=== PATIENT | male | born 1990 | race Two or more races ===

== ENCOUNTER 2021-03-13 07:54 | Outpatient (REF) | payer OTHER, SELFPAY ==
[2021-03-13 09:01] LABS: Hematocrit 43.8 % (42-52); Hemoglobin 14.4 g/dl (14.0-18.0); Mean Corpuscular HGB Conc 32.9 g/dl (31.0-36.0); Mean Corpuscular Hemoglobin 28.6 pg (27.0-33.0); Mean Corpuscular Volume 86.9 fL (80-98); Mean Platelet Volume 11.5 fL (9.4-12.4); Platelet Count 255 X10*3/uL (160-400); Red Blood Count 5.04 X10*6/uL (4.60-5.80); Red Cell Distribution Width 12.7 % (11.0-16.0); White Blood Count 6.5 X10*3/uL (4.8-10.8)
[2021-03-13 09:44] LABS: TSH reflex Free T4 1.22 uIU/mL (0.32-4.0)
[2021-03-13 10:17] LABS: Alanine Aminotransferase 34 U/L (0-40); Albumin Level 4.6 g/dL (3.5-5.0); Alkaline Phosphatase 54 U/L (39-117); Anion Gap 14 (12-20); Aspartate Amino Transferase 30 U/L (5-37); Bilirubin Total 1.4 mg/dL (0.0-1.0); Blood Urea Nitrogen 13 mg/dL (9-16); Calcium 9.4 mg/dL (8.4-10.2); Carbon Dioxide 25 mmol/L (22-29); Chloride 105 mmol/L (96-108); Cholesterol 165 mg/dL; Estimated Glomerular Filt Rate > 60; Glucose Fasting 94 mg/dL (60-99); HDL Cholesterol 41 mg/dL; LDL Cholesterol Calculated 104 mg/dl; Potassium 4.5 mmol/L (3.3-5.1); Sodium 139 mmol/L (135-145); Total Protein 7.2 g/dL (6.5-8.0); Triglycerides 104 mg/dL
== END 2021-03-13 07:55 | disposition home or self-care (01) ==
LOC: HO.LAB 07:54
PROVIDERS: PCP Physician Assistant; Visit Provider Physician Assistant
DX: Z13.220 Encounter for screening for lipoid disorders (principal); Z13.29 Encounter for screening for other suspected endocrine disorder; I10 Essential (primary) hypertension
CPT/HCPCS: 36415; 80053; 80061; 84443; 85027

== ENCOUNTER → 2021-04-16 13:52 | Outpatient (REF) | payer OTHER, SELFPAY ==
--- NOTE | 2021-04-16 13:56 | CA_ITS ---
Transthoracic Echocardiogram Patient (Last, First, Middle): Michael Vera Angel Gender: Male Date of : 1990 Age: 31 Procedure Date: 04/16/2021 Procedure Type: Transthoracic Echocardiogram Location: OP Height: 170.18 cm Weight: 104.33 kg BSA: 2.15 m2 Heart Rate: bpm BP: 105 / 64 mmHg Exec. Creative Director: BRYAN Referring MD: Cornell Moy PA-C Symptoms: Z86.79 - Personal history of other diseases of the circul... Study Quality: Fair ECG Rhythm: Sinus Conclusions: - The left ventricular systolic function is normal. The visually estimated ejection fraction is between 55-60%. - No obvious valvular pathology seen on this study. Findings Left Ventricle Normal left ventricular cavity size. There is mildly increased left ventricular wall thickness. The left ventricular systolic function is normal. The visually estimated ejection fraction is between 55-60%. There is no evidence of regional wall motion abnormalities. Diastolic function is normal for age. Right Ventricle Normal right ventricular cavity size and systolic function. Atria Both atria are normal in size. Aortic Valve There is a normal trileaflet aortic valve. There is no aortic valve stenosis. There is no aortic valve regurgitation. Mitral Valve The mitral valve appears normal. There is trace mitral valve regurgitation. There is no mitral valve stenosis. Pulmonic Valve The pulmonic valve was not well visualized. Tricuspid Valve Normal tricuspid valve structure. There is trace tricuspid valve regurgitation. The pulmonary artery systolic pressure is normal. Great Vessels The aortic annulus, sinuses of valsalva, and asc aorta are normal in size. Venous The inferior vena cava is normal in size and collapses greater than 50% with inspiration. Pericardium/Pleural There is no evidence of pericardial effusion. Prior Study Comparison No prior study available for comparison. Recommendations, Care & Conclusions No obvious valvular pathology seen on this study. Measurements M-Mode Liner Measurements Normals - Women/Men IVSd: 1.52 0.6-0.9/0.6-1.0 cm 2D Linear Measurements IVSd: 1.39 0.6-0.9/0.6-1.0 cm LVIDd: 4.15 3.9-5.3/4.2-5.9 cm LVIDd Index: 1.93 2.4-3.2/2.2-3.1 cm/m2 LVIDs: 2.77 2.0-3.6 cm LVPWd: 1.15 0.7-1.1 cm LA Diam: 3.80 2.7-3.8/3.0-4.0 cm LAIDs Index: 1.77 1.5-2.3 cm/m2 LV Mass: 237.06 67-162/88-224 g LV Mass Index: 110.26 43-95/49-115 g/m2 LVOT Diam: 2.20 3.0+(-)1.3 cm 2D Systolic Function EF 4C: 69.80 >55% EF 2C: 48.10 >55% EF BiP: 60.20 >55% Mitral Valve MV Pk E: 0.56 MV PK A: 0.35 MV Decel Time: 169.00 E/A: 1.60 E'Lateral: 14.90 E'Medial: 7.83 E/E' Med: 7.10 E/E' Lat: 3.70 PHT: 50.00 MVA PHT: 4.40 Decel [place]: 3.30 Aortic Valve AoV Pk Homer: 1.30 AoV Pk Grad: 7.00 LVOT LVOT Pk Homer: 0.86 LVOT Mn [place]: 0.58 LVOT VTI: 0.15 LVOT Pk Grad: 3.00 LVOT Mn Grad: 2.00 LVOT Diam: 2.20 LVOT Area: 3.80 Diastolic Function MV Pk E: 0.56 MV Pk A: 0.35 E/A: 1.60 E'Medial: 7.83 E/E' Med: 7.10 E' Laterial: 14.90 E/E' Lat: 3.70 Right Ventricle TAPSE (mm): 2.03 Tricuspid Valve TR Pk Homer: 1.97 TR Pk Grad: 16.00 RA Press: 3.00 RVSP: 19.00 Great Vessels Aorta Ao Asc: 2.80 2.1-3.4 cm Updated in Other Vendor System with Status of Final Aydin Wynn MD electronically signed on 04/18/2021 10:54:16 AM with status of Final
== END ==
LOC: HO.CARD 13:52
PROVIDERS: Visit Provider Physician Assistant
DX: Z86.79 Personal history of other diseases of the circulatory system (principal)
CPT/HCPCS: 93306

== ENCOUNTER 2022-07-30 18:13 | Emergency (ER) | payer OTHER, SELFPAY ==
--- NOTE | ~2022-07-30 | CT_ITS ---
EXAMINATION: CT ABDOMEN AND PELVIS WITHOUT CONTRAST CLINICAL INFORMATION: Abdominal pain. COMPARISON: CT dated 11/06/2015 and ultrasound dated 05/07/2019 TECHNIQUE: Multidetector volumetric imaging was performed from the superior aspect of the liver through the pubic symphysis. Sagittal and coronal reformatted images were obtained on the technologist's workstation. This CT examination was performed using dose optimization techniques as appropriate, variously including the following: *Automated exposure control *Adjustment of mA and/or kV according to patient size (this includes techniques or standardized protocols for targeted exams where dose is matched to indication/reason for exam; i.e. extremities or head) *Use of iterative reconstruction technique DLP: 727 mGy-cm FINDINGS: LUNG BASES: The visualized lung bases are unremarkable. LIVER, GALLBLADDER, AND BILIARY TREE: The liver is normal in size, shape, and attenuation. No focal hepatic lesion or biliary ductal dilatation is present. The gallbladder is unremarkable with no evidence of radiopaque gallstones, gallbladder wall thickening, or obvious pericholecystic inflammatory changes. PANCREAS: Unremarkable. SPLEEN: Unremarkable. ADRENAL GLANDS: Unremarkable. KIDNEYS AND URETERS: The kidneys are normal in size, shape, and attenuation. No hydronephrosis, hydroureter, or calculi seen. No perinephric stranding. BLADDER: Unremarkable. GASTROINTESTINAL TRACT: Stomach, small bowel, and colon are normal in caliber. No bowel wall thickening or surrounding inflammatory changes. Appendix appears surgically absent. No intraperitoneal free fluid or free air. ABDOMINAL WALL: No significant hernia is appreciated. LYMPH NODES: Normal. VASCULAR: Unremarkable. PELVIC VISCERA: The prostate and seminal vesicles are unremarkable. OSSEOUS STRUCTURES: No acute osseous abnormalities. Bone mineralization is normal. Thoracolumbar spine appears relatively well-preserved. CT/CT abdomen pelvis wo IV con IMPRESSION: No acute intra-abdominal or intrapelvic abnormalities. Prior appendectomy. Fleischner guidelines were followed.
--- NOTE | ~2022-07-30 | XR_ITS ---
EXAMINATION: XR CHEST, 2 VIEWS CLINICAL INFORMATION: Weakness, syncope COMPARISON: 05/07/2019 TECHNIQUE: PA and lateral views of the chest were obtained. FINDINGS: Lungs are clear. No consolidation, pneumothorax, or pleural effusion. Cardiac and mediastinal contours are normal. Pulmonary vasculature is unremarkable. Trachea is midline. Osseous structures are unremarkable. XR/XR chest 2V IMPRESSION: No acute cardiopulmonary findings.
[2022-07-30 18:26] VITALS: BP 95/52; PULSE 92; RESP 18; TEMP 36.9; O2SAT 98; BMI 33.5
--- NOTE | 2022-07-30 18:29 | ED_ITS ---
HPI - General Adult General Chief complaint: Abdominal Pain <ZINA Pérez - Last Filed: 07/30/22 18:29> Stated complaint: Abdominal pain/Syncope <ZINA Pérez - Last Filed: 07/30/22 18:29> Time Seen by Provider: 07/30/22 18:43 <ZINA Pérez - Last Filed: 07/30/22 18:29> Source: patient <Maegan Mann NP - Last Filed: 07/31/22 01:18> Mode of arrival: ambulatory <Maegan Mann NP - Last Filed: 07/31/22 01:18> Limitations: no limitations <Maegan Mann NP - Last Filed: 07/31/22 01:18> History of Present Illness HPI narrative: 32-year-old male presents with 1 day of abdominal pain and 2 episodes of syncope. <Maegan Mann NP - Last Filed: 07/31/22 01:18> Onset (ago): day(s) (1) <Maegan Mann NP - Last Filed: 07/31/22 01:18> Location: abdomen <Maegan Mann NP - Last Filed: 07/31/22 01:18> Radiation: non-radiation <Maegan Mann NP - Last Filed: 07/31/22 01:18> Severity: mild <Maegan Mann NP - Last Filed: 07/31/22 01:18> Quality: aching <Maegan Mann NP - Last Filed: 07/31/22 01:18> Pain Consistency: constant <Maegan Mann NP - Last Filed: 07/31/22 01:18> Relieving factors: none <Maegan Mann NP - Last Filed: 07/31/22 01:18> Associated symptoms: syncope <Maegan Mann NP - Last Filed: 07/31/22 01:18> Treatments prior to arrival: none <Maegan Mann NP - Last Filed: 07/31/22 01:18> Related Data Home medications: Home Medications Medication Instructions Recorded Confirmed No Known Home Meds 04/30/20 03/22/22 <ZINA Pérez - Last Filed: 07/30/22 18:29> Allergies/adverse reactions: Allergies Allergy/AdvReac Type Severity Reaction Status Date / Time No Known Allergies Allergy Verified 07/30/22 18:29 [No Known Allergies*] <ZINA Pérez - Last Filed: 07/30/22 18:29> Review of Systems Review of Systems: Constitutional: No Fever, No Chills Cardiovascular: No Chest Pain, No SOB Respiratory: No Cough, No Dyspnea Gastrointestinal: No Nausea, No Vomiting, No Diarrhea, positive abdominal Pain Genitourinary: No Dysuria, No Hematuria Musculoskeletal: No joint pain, No Myalgias, No Joint Swelling Skin: No Skin lacerations, No rash Neuro: No Weakness, No Numbness, No Paresthesias, positive Loss of Consciousness, No Dizziness, No Headache <Maegan Mann NP - Last Filed: 07/31/22 01:18> Yes all other systems are reviewed and are negative <Maegan Mann NP - Last Filed: 07/31/22 01:18> PMFSH Past Medical History Attestation statement: The following information was validated with the patient. <Maegan Mann NP - Last Filed: 07/31/22 01:18> Source: old records reviewed <Maegan Mann NP - Last Filed: 07/31/22 01:18> Surgical History: Surgical History History of appendectomy <ZINA Pérez - Last Filed: 07/30/22 18:29> Family History Family History: Family History Father Hypertension Mother Diabetes Son Alive and well Daughter Alive and well <ZINA Pérez - Last Filed: 07/30/22 18:29> Social History Social History: Social History Housing: House Alcohol intake: never Patient Tobacco Use Status: Never used Tobacco Smoked in Last 30 Days: No e-Cigarette/Vaping Use: Never Used Second Hand Smoke Exposure: No Use of substances other than those prescribed or required for medical reasons: No Substance Use Type: Marijuana Advance Directives: No Advance Directives Information Provided: No service: No Current occupational status: employed Current occupation: Shipping and recieving [place] Cognitive needs: No Hearing needs: No Vision needs: Yes (GLASSES) <ZINA Pérez - Last Filed: 07/30/22 18:29> Physical Exam ED Vital Signs: Vital Signs - 24 hr 07/30/22 18:26 07/30/22 19:37 07/30/22 19:39 Temperature 98.4 F 98.1 F Pulse Rate 92 73 73 Respiratory Rate 18 10 L 10 L Blood Pressure 95/52 L 95/57 L 117/68 Pulse Oximetry 98 97 98 Oxygen Delivery Method Room Air Room Air Room Air 07/30/22 20:00 Temperature Pulse Rate 80 Respiratory Rate 19 Blood Pressure 119/73 Pulse Oximetry 98 Oxygen Delivery Method Room Air BMI result Body Mass Index 33.5 <ZINA Pérez - Last Filed: 07/30/22 18:29> Vital Signs - 24 hr 07/30/22 18:26 07/30/22 19:37 07/30/22 19:39 Temperature 98.4 F 98.1 F Pulse Rate 92 73 73 Respiratory Rate 18 10 L 10 L Blood Pressure 95/52 L 95/57 L 117/68 Pulse Oximetry 98 97 98 Oxygen Delivery Method Room Air Room Air Room Air 07/30/22 20:00 Temperature Pulse Rate 80 Respiratory Rate 19 Blood Pressure 119/73 Pulse Oximetry 98 Oxygen Delivery Method Room Air BMI result Body Mass Index 33.5 <Maegan Mann NP - Last Filed: 07/31/22 01:18> Appearance: Alert. Oriented X3. No acute distress. Eyes: Pupils equal, round and reactive to light. ENT: Pharynx normal. Neck: Normal inspection. Neck supple. CVS: Normal heart rate and rhythm. Pulses normal. Respiratory: No respiratory distress. Breath sounds normal. Abdomen: Soft and nontender. Skin: Skin warm and dry. Normal skin color. Normal skin turgor. Extremities: No lower extremity edema. Gait not assessed for safety. Neuro: No motor deficit. No sensory deficit. Cranial nerves 2-12 intact. <Maegan Mann NP - Last Filed: 07/31/22 01:18> Course Course Course Narrative: RME performed by Miya Swan PA-C. Patient is a 32 year old male presenting to the emergency department with multiple syncopal episodes and abdominal pain. Labs ordered. <ZINA Pérez - Last Filed: 07/30/22 18:29> RME performed by Miya Swan PA-C. Patient is a 32 year old male presenting to the emergency department with multiple syncopal episodes and abdominal pain. Labs ordered. 32-year-old male presents with abdominal pain and nausea. States his children have been sick with a gastroenteritis type virus. Patient stated that he has had some abdominal pain and cramping, and he treated it with sitting in a hot tub for 2 hours. He stated that the hot tub made the pain better, and when he got out of the hot tub he had a syncopal episode. He does not report drinking very much today, and still feels a little bit weak. I did provide education to this patient that 2 hours in the hot tub is excessive and that he most likely has dehydration, heat exhaustion, and would require IV fluid resuscitation. Will order CT scan abdomen pelvis. And EKG. Patient is hypotensive at 95/52, most likely dehydration, low likelihood of sepsis. 19:30 patient has syncopal episode during IV start. Labs and fluid still pending. EKG normal sinus. 22:20 labs are negative for acute findings requiring emergent intervention. C OVID influenza RSV are negative. Low likelihood of ACS. Chest x-rays negative. CT abdomen pelvis negative. Pulse ox 97% ambulatory, ambulatory without difficulty or dizziness. Plan of care is to Discharge home. Patient does understand that he should not be in a hot tub for greater than 15 minutes at a time. Patient was able to tolerate p.o. food and fluids. Patient verbalized understanding of and agrees to plan of care discharge home. Verbalized understanding of signs symptoms indicating need for emergent event. <Maegan Mann NP - Last Filed: 07/31/22 01:18> Medications Administered Discontinued Medications Generic Name Dose Route Start Last Admin Trade Name Freq PRN Reason Stop Dose Admin Sodium Chloride 1,000 mls @ 999 mls/hr 07/30/22 18:45 07/30/22 21:15 Ns IVCONT 07/30/22 19:45 Infused .Q1H1M JANN Infusion Sodium Chloride 1,000 mls @ 999 mls/hr 07/30/22 19:00 07/30/22 21:15 Ns IVCONT 07/30/22 20:00 Infused .Q1H1M JANN Infusion Ondansetron HCl 4 mg 07/30/22 19:46 07/30/22 20:18 Ondansetron Hcl 4 Mg/2 Ml Vial IVPUSH 07/30/22 19:47 4 mg ONCE ONE Administration <ZINA Pérez - Last Filed: 07/30/22 18:29> Medications Administered Discontinued Medications Generic Name Dose Route Start Last Admin Trade Name Marckq PRN Reason Stop Dose Admin Sodium Chloride 1,000 mls @ 999 mls/hr 07/30/22 18:45 07/30/22 21:15 Ns IVCONT 07/30/22 19:45 Infused .Q1H1M JANN Infusion Sodium Chloride 1,000 mls @ 999 mls/hr 07/30/22 19:00 07/30/22 21:15 Ns IVCONT 07/30/22 20:00 Infused .Q1H1M JANN Infusion Ondansetron HCl 4 mg 07/30/22 19:46 07/30/22 20:18 Ondansetron Hcl 4 Mg/2 Ml Vial IVPUSH 07/30/22 19:47 4 mg ONCE ONE Administration <Maegan Mann NP - Last Filed: 07/31/22 01:18> Medical Decision Making Differential Diagnosis Differential Diagnoses: The differential diagnosis associated with the presentation includes <Maegan Mann NP - Last Filed: 07/31/22 01:18> heat exhaustion, dehydration, gastroenteritis, ACS <Maegan Mann NP - Last Filed: 07/31/22 01:18> Lab Data MDM Lab Attestation statement: I reviewed the patient's lab results. <Maegan Mann NP - Last Filed: 07/31/22 01:18> Result Diagrams: 07/30/22 19:18 07/30/22 19:18 <ZINA Pérez - Last Filed: 07/30/22 18:29> Labs: Lab Results 07/30/22 07/30/22 07/30/22 Range/Units 19:17 19:18 19:18 WBC 9.8 (4.8-10.8) X10*3/uL RBC 5.13 (4.60-5.80) X10*6/uL Hgb 14.8 (14.0-18.0) g/dl Hct 43.5 (42.0-52.0) % MCV 84.8 (80.0-98.0) fL MCH 28.8 (27.0-33.0) pg MCHC 34.0 (31.0-36.0) g/dl RDW 12.2 (11.0-16.0) % Plt Count 236 (160-400) X10*3/uL MPV 10.5 (9.4-12.4) fL Immature Gran % (Auto) 0.2 (0.0-0.4) % Neut % (Auto) 88.5 H (45-73) % Lymph % (Auto) 5.5 L (20-40) % [place] % (Auto) 5.3 (2-11) % Eos % (Auto) 0.4 (0-4) % Baso % (Auto) 0.1 (0-2) % Lymph # (Auto) 0.5 L (1.2-4.9) X10*3/uL [place] # (Auto) 0.5 (0.1-1.2) X10*3/uL Eos # (Auto) 0.0 (0.0-0.4) X10*3/uL Baso # (Auto) 0.0 (0.0-0.2) X10*3/uL Abs Immat Gran (auto) 0.02 (0.00-0.03) X10*3/uL Absolute Neuts (auto) 8.7 H (2.0-8.3) x10*3/uL Absolute Nucleated RBC 0.000 (0.0-0.012) X10*3/uL Nucleated RBC % (auto) 0.0 (0.0-0.2) /100WBC Sodium 138 (135-145) mmol/L Potassium 4.4 (3.3-5.1) mmol/L Chloride 103 (96-108) mmol/L Carbon Dioxide 24 (22-29) mmol/L Anion Gap 15 (12-20) BUN 17 H (9-16) mg/dL Creatinine 1.09 (0.5-1.4) mg/dL Estim Creat Clear Calc 105.5 Estimated GFR > 60 Random Glucose 114 (60-115) mg/dL Calcium 9.5 (8.4-10.2) mg/dL Magnesium 2.0 (1.6-2.6) mg/dL Total Bilirubin 1.6 H (0.0-1.0) mg/dL AST 27 (5-37) U/L ALT 24 (0-40) U/L Alkaline Phosphatase 53 (39-117) U/L Troponin I High Sens (<3.5-35.0) ng/L Total Protein 7.3 (6.5-8.0) g/dL Albumin 4.7 (3.5-5.0) g/dL Influenza Type A (PCR) NEGATIVE (Negative) Influenza Type B (PCR) NEGATIVE (Negative) RSV RNA Qual (PCR) NEGATIVE (Negative) SARS-CoV-2 RNA (RT-PCR) NEGATIVE (Negative) 07/30/22 Range/Units 19:18 WBC (4.8-10.8) X10*3/uL RBC (4.60-5.80) X10*6/uL Hgb (14.0-18.0) g/dl Hct (42.0-52.0) % MCV (80.0-98.0) fL MCH (27.0-33.0) pg MCHC (31.0-36.0) g/dl RDW (11.0-16.0) % Plt Count (160-400) X10*3/uL MPV (9.4-12.4) fL Immature Gran % (Auto) (0.0-0.4) % Neut % (Auto) (45-73) % Lymph % (Auto) (20-40) % [place] % (Auto) (2-11) % Eos % (Auto) (0-4) % Baso % (Auto) (0-2) % Lymph # (Auto) (1.2-4.9) X10*3/uL [place] # (Auto) (0.1-1.2) X10*3/uL Eos # (Auto) (0.0-0.4) X10*3/uL Baso # (Auto) (0.0-0.2) X10*3/uL Abs Immat Gran (auto) (0.00-0.03) X10*3/uL Absolute Neuts (auto) (2.0-8.3) x10*3/uL Absolute Nucleated RBC (0.0-0.012) X10*3/uL Nucleated RBC % (auto) (0.0-0.2) /100WBC Sodium (135-145) mmol/L Potassium (3.3-5.1) mmol/L Chloride (96-108) mmol/L Carbon Dioxide (22-29) mmol/L Anion Gap (12-20) BUN (9-16) mg/dL Creatinine (0.5-1.4) mg/dL Estim Creat Clear Calc Estimated GFR Random Glucose (60-115) mg/dL Calcium (8.4-10.2) mg/dL Magnesium (1.6-2.6) mg/dL Total Bilirubin (0.0-1.0) mg/dL AST (5-37) U/L ALT (0-40) U/L Alkaline Phosphatase (39-117) U/L Troponin I High Sens < 3.5 (<3.5-35.0) ng/L Total Protein (6.5-8.0) g/dL Albumin (3.5-5.0) g/dL Influenza Type A (PCR) (Negative) Influenza Type B (PCR) (Negative) RSV RNA Qual (PCR) (Negative) SARS-CoV-2 RNA (RT-PCR) (Negative) <ZINA Pérez - Last Filed: 07/30/22 18:29> Lab Results 07/30/22 07/30/22 07/30/22 Range/Units 19:17 19:18 19:18 WBC 9.8 (4.8-10.8) X10*3/uL RBC 5.13 (4.60-5.80) X10*6/uL Hgb 14.8 (14.0-18.0) g/dl Hct 43.5 (42.0-52.0) % MCV 84.8 (80.0-98.0) fL MCH 28.8 (27.0-33.0) pg MCHC 34.0 (31.0-36.0) g/dl RDW 12.2 (11.0-16.0) % Plt Count 236 (160-400) X10*3/uL MPV 10.5 (9.4-12.4) fL Immature Gran % (Auto) 0.2 (0.0-0.4) % Neut % (Auto) 88.5 H (45-73) % Lymph % (Auto) 5.5 L (20-40) % [place] % (Auto) 5.3 (2-11) % Eos % (Auto) 0.4 (0-4) % Baso % (Auto) 0.1 (0-2) % Lymph # (Auto) 0.5 L (1.2-4.9) X10*3/uL [place] # (Auto) 0.5 (0.1-1.2) X10*3/uL Eos # (Auto) 0.0 (0.0-0.4) X10*3/uL Baso # (Auto) 0.0 (0.0-0.2) X10*3/uL Abs Immat Gran (auto) 0.02 (0.00-0.03) X10*3/uL Absolute Neuts (auto) 8.7 H (2.0-8.3) x10*3/uL Absolute Nucleated RBC 0.000 (0.0-0.012) X10*3/uL Nucleated RBC % (auto) 0.0 (0.0-0.2) /100WBC Sodium 138 (135-145) mmol/L Potassium 4.4 (3.3-5.1) mmol/L Chloride 103 (96-108) mmol/L Carbon Dioxide 24 (22-29) mmol/L Anion Gap 15 (12-20) BUN 17 H (9-16) mg/dL Creatinine 1.09 (0.5-1.4) mg/dL Estim Creat Clear Calc 105.5 Estimated GFR > 60 Random Glucose 114 (60-115) mg/dL Calcium 9.5 (8.4-10.2) mg/dL Magnesium 2.0 (1.6-2.6) mg/dL Total Bilirubin 1.6 H (0.0-1.0) mg/dL AST 27 (5-37) U/L ALT 24 (0-40) U/L Alkaline Phosphatase 53 (39-117) U/L Troponin I High Sens (<3.5-35.0) ng/L Total Protein 7.3 (6.5-8.0) g/dL Albumin 4.7 (3.5-5.0) g/dL Influenza Type A (PCR) NEGATIVE (Negative) Influenza Type B (PCR) NEGATIVE (Negative) RSV RNA Qual (PCR) NEGATIVE (Negative) SARS-CoV-2 RNA (RT-PCR) NEGATIVE (Negative) 07/30/22 Range/Units 19:18 WBC (4.8-10.8) X10*3/uL RBC (4.60-5.80) X10*6/uL Hgb (14.0-18.0) g/dl Hct (42.0-52.0) % MCV (80.0-98.0) fL MCH (27.0-33.0) pg MCHC (31.0-36.0) g/dl RDW (11.0-16.0) % Plt Count (160-400) X10*3/uL MPV (9.4-12.4) fL Immature Gran % (Auto) (0.0-0.4) % Neut % (Auto) (45-73) % Lymph % (Auto) (20-40) % [place] % (Auto) (2-11) % Eos % (Auto) (0-4) % Baso % (Auto) (0-2) % Lymph # (Auto) (1.2-4.9) X10*3/uL [place] # (Auto) (0.1-1.2) X10*3/uL Eos # (Auto) (0.0-0.4) X10*3/uL Baso # (Auto) (0.0-0.2) X10*3/uL Abs Immat Gran (auto) (0.00-0.03) X10*3/uL Absolute Neuts (auto) (2.0-8.3) x10*3/uL Absolute Nucleated RBC (0.0-0.012) X10*3/uL Nucleated RBC % (auto) (0.0-0.2) /100WBC Sodium (135-145) mmol/L Potassium (3.3-5.1) mmol/L Chloride (96-108) mmol/L Carbon Dioxide (22-29) mmol/L Anion Gap (12-20) BUN (9-16) mg/dL Creatinine (0.5-1.4) mg/dL Estim Creat Clear Calc Estimated GFR Random Glucose (60-115) mg/dL Calcium (8.4-10.2) mg/dL Magnesium (1.6-2.6) mg/dL Total Bilirubin (0.0-1.0) mg/dL AST (5-37) U/L ALT (0-40) U/L Alkaline Phosphatase (39-117) U/L Troponin I High Sens < 3.5 (<3.5-35.0) ng/L Total Protein (6.5-8.0) g/dL Albumin (3.5-5.0) g/dL Influenza Type A (PCR) (Negative) Influenza Type B (PCR) (Negative) RSV RNA Qual (PCR) (Negative) SARS-CoV-2 RNA (RT-PCR) (Negative) <Maegan Mann NP - Last Filed: 07/31/22 01:18> Independent Interpretation I performed an independent interpretation of an: EKG, Plain X-Ray and CT Scan <Maegan Mann NP - Last Filed: 07/31/22 01:18> Interpretation: Normal sinus rhythm Normal ECG When compared with ECG of 07-MAY-2019 22:24, No significant change was found Vent. rate 79 BPM IN interval 164 ms QRS duration 88 ms QT/QTc 332/380 ms P-R-T axes 19 64 20 30-JUL-2022 19:10:13 <Maegan Mann NP - Last Filed: 07/31/22 01:18> Radiology Impression Discussion of test interpretation with radiology: I have reviewed the radiologist's reading. <Maegan Mann NP - Last Filed: 07/31/22 01:18> Radiologist Impression: EXAMINATION: XR CHEST, 2 VIEWS CLINICAL INFORMATION: Weakness, syncope COMPARISON: 05/07/2019 TECHNIQUE: PA and lateral views of the chest were obtained. FINDINGS: Lungs are clear. No consolidation, pneumothorax, or pleural effusion. Cardiac and mediastinal contours are normal. Pulmonary vasculature is unremarkable. Trachea is midline. Osseous structures are unremarkable. XR/XR chest 2V IMPRESSION: No acute cardiopulmonary findings FINDINGS: LUNG BASES: The visualized lung bases are unremarkable.? LIVER, GALLBLADDER, AND BILIARY TREE: The liver is normal in size, shape, and attenuation. No focal hepatic lesion or biliary ductal dilatation is present. The gallbladder is unremarkable with no evidence of radiopaque gallstones, gallbladder wall thickening, or obvious pericholecystic inflammatory changes.? PANCREAS: Unremarkable.? SPLEEN: Unremarkable.? ADRENAL GLANDS: Unremarkable.? KIDNEYS AND URETERS: The kidneys are normal in size, shape, and attenuation. No hydronephrosis, hydroureter, or calculi seen. No perinephric stranding. ? BLADDER: Unremarkable.? GASTROINTESTINAL TRACT: Stomach, small bowel, and colon are normal in caliber. No bowel wall thickening or surrounding inflammatory changes. Appendix appears surgically absent. No intraperitoneal free fluid or free air.? ABDOMINAL WALL: No significant hernia is appreciated.? LYMPH NODES: Normal. VASCULAR: Unremarkable. PELVIC VISCERA: The prostate and seminal vesicles are unremarkable.? OSSEOUS STRUCTURES: No acute osseous abnormalities. Bone mineralization is normal. Thoracolumbar spine appears relatively well-preserved.? CT/CT abdomen pelvis wo IV con IMPRESSION: No acute intra-abdominal or intrapelvic abnormalities. Prior appendectomy. ? Fleischner guidelines were followed. <Maegan Mann NP - Last Filed: 07/31/22 01:18> Independent Historian Clinical information obtained from an independent historian. History obtained from or confirmed by: Parent <Maegan Mann NP - Last Filed: 07/31/22 01:18> External Record Review External record reviewed: Outpatient record and Prior outpatient labs <Maegan Mann NP - Last Filed: 07/31/22 01:18> Discharge Plan Discharge Clinical Impression: Acute dehydration, Heat exhaustion, Syncope <ZINA Pérez - Last Filed: 07/30/22 18:29> Patient Disposition: Home, Self-Care <ZINA Pérez - Last Filed: 07/30/22 18:29> Instructions: Dehydration (ED), Heat Exhaustion (ED), Syncope (ED) <ZINA Pérez - Last Filed: 07/30/22 18:29> Additional Instructions: You were evaluated for abdominal pain, syncope, and dehydration. Please limit your time in a hot tub. We gave 2 L of IV fluid for rehydration. Drink plenty of fluids. Follow-up with the primary care physician. Thank you for choosing this emergency department for evaluation. Please follow-up with primary care physician as needed. Return to the emergency department for any new, concerning, or worsening symptoms. <ZINA Pérez - Last Filed: 07/30/22 18:29> Prescriptions: No Action No Known Home Meds <ZINA Pérez - Last Filed: 07/30/22 18:29> Interventions: ED Discharge Assessment Last Done: 07/30/22 22:32 <ZINA Pérez - Last Filed: 07/30/22 18:29> Discharge Date/Time: 07/30/22 22:33 <ZINA Pérez - Last Filed: 07/30/22 18:29>
--- NOTE | 2022-07-30 18:48 | ECG_ITS ---
Test Reason : abdominal pain Blood Pressure : / mmHG Vent. Rate : 079 BPM Atrial Rate : 079 BPM P-R Int : 164 ms QRS Dur : 088 ms QT Int : 332 ms P-R-T Axes : 019 064 020 degrees QTc Int : 380 ms Normal sinus rhythm Normal ECG When compared with ECG of 07-MAY-2019 22:24, No significant change was found Referred By: Maegan Mann Electronically Signed By:Aristides Cordon
--- NOTE | 2022-07-30 19:20 | PC.NURSE ---
assumed care of pt alert and oriented resting quietly while, pt's mother at bedside
[2022-07-30 19:23] LABS: MANUAL DIFF FLAG NO
[2022-07-30 19:24] LABS: Basophils Percent Auto 0.1 % (0-2); Eosinophils Percent Auto 0.4 % (0-4); Hematocrit 43.5 % (42.0-52.0); Hemoglobin 14.8 g/dl (14.0-18.0); Imm Gran Abs Auto 0.02 X10*3/uL (0.00-0.03); Imm Gran Pct Auto 0.2 % (0.0-0.4); Lymphocytes Absolute Auto 0.5 X10*3/uL (1.2-4.9); Lymphocytes Percent Auto 5.5 % (20-40); Mean Corpuscular Hemoglobin 28.8 pg (27.0-33.0); Mean Corpuscular Volume 84.8 fL (80.0-98.0); Mean Platelet Volume 10.5 fL (9.4-12.4); Monocytes Absolute Auto 0.5 X10*3/uL (0.1-1.2); Monocytes Percent Auto 5.3 % (2-11); Neutrophils Absolute Auto 8.7 x10*3/uL (2.0-8.3); Neutrophils Percent Auto 88.5 % (45-73); Platelet Count 236 X10*3/uL (160-400); Red Blood Count 5.13 X10*6/uL (4.60-5.80); Red Cell Distribution Width 12.2 % (11.0-16.0); White Blood Count 9.8 X10*3/uL (4.8-10.8)
[2022-07-30] MEDS: 0.9 % Sodium Chloride 1,000 ML 999 ML IVCONT ×2 (19:28)
[2022-07-30 19:37] VITALS: BP 95/57; PULSE 73; RESP 10; TEMP 36.7; O2SAT 97
[2022-07-30 19:39] VITALS: BP 117/68; PULSE 73; RESP 10; O2SAT 98
--- NOTE | 2022-07-30 19:40 | PC.NURSE ---
pt syncopized during IV line being est
--- NOTE | 2022-07-30 19:45 | PC.NURSE ---
Second IV line placed 20g on R AC by RICH Medley pt placed on school lunch monitor by RICH Kumar
--- NOTE | 2022-07-30 19:46 | PC.NURSE ---
per verbal order from provider, Maegan Bernal NP zofran IV push 4mg for pt's nausea
--- NOTE | 2022-07-30 19:48 | PC.NURSE ---
pt a&o c/o abd pain, nausea, pain to L elbow/buttocks from syncopizing at home pt also spent 2hrs in a hot tub prior to his first syncopal episode pt doesnt recall if he struck his head pt also complains of dizziness
[2022-07-30 19:51] LABS: Alanine Aminotransferase 24 U/L (0-40); Albumin Level 4.7 g/dL (3.5-5.0); Alkaline Phosphatase 53 U/L (39-117); Anion Gap 15 (12-20); Aspartate Amino Transferase 27 U/L (5-37); Bilirubin Total 1.6 mg/dL (0.0-1.0); Blood Urea Nitrogen 17 mg/dL (9-16); Calcium 9.5 mg/dL (8.4-10.2); Carbon Dioxide 24 mmol/L (22-29); Chloride 103 mmol/L (96-108); Creatinine Clr Calc Pharmacy 105.5; Estimated Glomerular Filt Rate > 60; Glucose Random 114 mg/dL (60-115); Potassium 4.4 mmol/L (3.3-5.1); Sodium 138 mmol/L (135-145); Total Protein 7.3 g/dL (6.5-8.0)
[2022-07-30 20:00] VITALS: BP 119/73; PULSE 80; RESP 19; O2SAT 98
[2022-07-30 20:04] LABS: Influenza A PCR NEGATIVE (Negative); Influenza B PCR NEGATIVE (Negative); Resp Syncy Virus RNA Qual PCR NEGATIVE (Negative); SARS COV2 PCR INHOUSE NEGATIVE (Negative)
[2022-07-30 20:05] LABS: Troponin-I High Sensitivity < 3.5 ng/L (<3.5-35.0)
[2022-07-30] MEDS: ondansetron HCL 4 MG/2 ML VIAL IVPUSH (20:18)
--- NOTE | 2022-07-30 22:33 | PC.NURSE ---
discharge instructions given/explained, no apparent distress, IV cath tips intact upon removal, all questions answered, steady gait
== END 2022-07-30 22:33 | disposition home or self-care (01) ==
PROVIDERS: Physician Assistant Medical; Emergency Provider Internal Medicine; PCP Physician Assistant
DX: E86.0 Dehydration (principal); R55 Syncope and collapse; R10.13 Epigastric pain; Z20.822 Contact with and (suspected) exposure to COVID-19; Z20.828 Contact with and (suspected) exposure to other viral communicable diseases; Z79.899 Other long term (current) drug therapy
CPT/HCPCS: 0241U; 36415; 71046; 74176; 80053; 83735; 84484; 85025; 93005; 96361; 96374; 99284; 99285; J2405

== ENCOUNTER 2024-10-04 15:38 | Outpatient (AMB) | payer OTHER, SELFPAY ==
--- NOTE | 2024-10-04 15:44 | MHC.PC.OV ---
Vital Signs 10/04/24 15:45 Height 5 ft 6 in Weight 249 lb BMI 40.2 BP 110/74 Blood Pressure Location Lt brachial Pulse 91 Pulse Source Pulse Oximeter Temp 97.3 F Temp Source Temporal Artery Scan Pulse Oximetry (%) 97 Oxygen Delivery Method Room Air Intake Visit Reasons: PE overdue Medical Clerical Assistant Required: No Accompanied by: Self / Same As Patient Allergies No Known Allergies [No Known Allergies*] Allergy (Verified 10/04/24 16:00) Medication List - Last Reconciled 10/04/24 by Cornell Moy PA-C No Known Home Meds Tobacco use date assessed: 10/04/24 Dental Screening Dental Screen Date: 10/04/24 Did you have a dental visit in the last 12 months?: No Did you have a dental problem in the last 6 months where you did not have access to dental care?: No Was dental information given to patient?: Patient has dentist HPI PE overdue HPI Details Patient is a 34-year-old male here today for routine annual physical.. Patient has a past medical history significant for obesity and a history of endocarditis. Patient interested in speaking with urologist about getting a vasectomy. He has due for his 3rd trialed this fall in his not interested in anymore children. Class 3 Obesity:? He has gained weight since last office visit. He admits to dietary indiscretion.He will continue to be physically active an adapt to better eating habits to continue losing weight. Vaccines: Up-to-date with tetanus, declines covid and flu vaccine. [facility] Surgical History History of appendectomy Family History Father Hypertension Mother Diabetes Hypertension Son Alive and well Daughter Alive and well Social History Housing: House Alcohol intake: never Patient Tobacco Use Status: Never used Tobacco e-Cigarette/Vaping Use: Never Used Second Hand Smoke Exposure: No Substance Use Type: Marijuana service: No Current occupational status: employed Current occupation: [employer] and [employer] Cognitive needs: No Hearing needs: No Vision needs: Yes (GLASSES) Questionnaire PHQ-9 Over the last 2 weeks, how often have you been bothered by any of the following problems? 1. Little interest or pleasure in doing things: not at all 2. Feeling down, depressed, or hopeless: not at all 3. Trouble falling or staying asleep, or sleeping too much: not at all 4. Feeling tired or having little energy: not at all 5. Poor appetite or overeating: not at all 6. Feeling bad about yourself - or that you are a failure or have let yourself or your family down: not at all 7. Trouble concentrating on things, such as reading the newspaper or watching television: not at all 8. Moving or speaking so slowly that other people could have noticed. Or the opposite - being so fidgety or restless that you have been moving around a lot more than usual: not at all 9. Thoughts that you would be better off or of hurting yourself in some way: not at all Total score: 0 Depression Screening Interpretation: Negative Depression Screening Done: Yes 83376 - PHQ-9 Billing: Yes Source: Developed by Drs. Kishore Buenrostro, Monica Jimenez, Mayco Minaya and colleagues, with an educational sae from [employer]. Thrive Questionnaire Date Thrive assessed: 10/04/24 I am a: Patient What is your living situation today?: I have a steady place to live Within the past 12 months, did the food you bought not last and you didn't have the money to get more?: Never true Within the past 12 months, did you worry whether your food would run out before you got money to buy more?: Never true Do you have trouble paying for medicines?: No Do you have trouble getting transportation to medical appointments?: No Do you have trouble paying your heating and electricity bill?: No Do you have trouble taking care of your child, family member or friend?: No Do you have trouble with day-to-day activities such as bathing, preparing meals, shopping, managing finances, etc.?: No Are you currently unemployed and looking for a job?: No Are you interested in more education?: No Please select the resources that you would like help with: None Currently or been in a relationship where the following occur: No concerns reported THRIVE Score: 0 AUDIT C Alcohol Use Questionnaire (AUDIT-C) 1. How often do you have a drink containing alcohol?: Never 3. How often do you have six or more drinks on one occasion?: Never Total Score: 0 EDMUNDO-7 AMB Questionnaire EDMUNDO-7 Date EDMUNDO - 7 assessed: 10/04/24 Feeling nervous, anxious, or on edge: 0 = Not at all Not being able to stop or control worryin = Not at all Worrying too much about different things: 0 = Not at all Trouble relaxin = Not at all Being so restless that it is hard to sit still: 0 = Not at all Becoming easily annoyed or irritable: 0 = Not at all Feeling afraid as if something awful might happen: 0 = Not at all Total EDMUNDO-7 score (0-4 normal; 5-9 mild; 10-14 moderate; 15-21 severe): 0 Source: Developed by Drs. Kishore Buenrostro, Monica Jimenez, Mayco Minaya and colleagues, with an educational sae from [employer]. EDMUNDO-7 Assessment Billing EDMUNDO-7 Assessment Tool: EDMUNDO-7 Assessment 39248 Review of Systems Const Denies body aches, Denies chills, Denies excessive sweating, Denies fatigue, Denies fever(s) and Denies headache(s) Eyes Denies blurry vision ENT Denies dysphagia, Denies vertigo, Denies dizziness, Denies headache(s), Denies hearing loss and Denies tinnitus Card Denies chest pain, Denies chest pain with activity, Denies syncope, Denies irregular heart rhythm and Denies dyspnea Resp Denies chest congestion, Denies cough, Denies hemoptysis, Denies dyspnea and Denies wheezing GI Denies abdominal pain, Denies melena, Denies hematochezia, Denies coffee ground emesis, Denies dysphagia, Denies diarrhea, Denies nausea and Denies vomiting Denies difficulty urinating, Denies dysuria, Denies urinary frequency, Denies urinary hesitancy and Denies urinary urgency Musc Denies arthralgias, Denies limited range of motion, Denies muscle cramps and Denies muscle weakness Skin/Breast Denies rash and Denies skin ulcer Neuro Denies Abnormal speech present, Denies confusion, Denies vertigo, Denies dizziness, Denies syncope, Denies headache(s), Denies memory loss and Denies seizure-like activity Psych Denies anxiety, Denies confusion, Denies depression, Denies memory loss, Denies panic attacks and Denies paranoia Endo Denies excessive sweating, Denies fatigue, Denies flushing, Denies polydipsia and Denies polyuria Aller/Immun Denies wheezing Physical exam (Primary Care) Vital Signs: Last Vital Signs Temp 97.3 F 10/04/24 15:45 Pulse 91 10/04/24 15:45 BP 110/74 10/04/24 15:45 Pulse Ox 97 10/04/24 15:45 Oxygen Delivery Method Room Air 10/04/24 15:45 BMI result Body Mass Index 40.2 BMI Assessment/Plan discussion: High BMI High, discussed plan: lifestyle, weight reduction, dietary and physical activity Tobacco/Smoking Status: Tobacco use Status Tobacco use date assessed 10/04/24 10/04/24 15:54 Patient Tobacco Use Status Never used Tobacco 10/04/24 15:54 Tobacco use type 03/18/21 15:49 e-Cigarette/Vaping Use Never Used 10/04/24 15:54 PHQ-9: PHQ-9 Score PHQ-9: Total score 0 10/04/24 16:01 Depression Screening Interpretation: Negative Thrive Assessment: Date of Thrive Assessment Date Thrive assessed 10/04/24 10/04/24 15:54 Currently or been in a relationship where the following occur: No concerns reported Const General: cooperative, comfortable, no acute distress, alert and awake; No confusion Orientation/consciousness: oriented to person, oriented to place, patient oriented x3 and No confusion HENMT Head: Yes normocephalic Ears: external ears normal and TM's normal bilaterally Face and sinus: No sinus tenderness Mouth: Normal oral and palatal mucosa present and tongue normal Teeth and gingiva: dentition normal and gingiva normal Throat: Yes posterior oropharynx normal, Yes tonsils normal and Yes uvula midline Eyes Conjunctivae: conjunctivae normal Sclerae: sclerae normal Pupils: Equal, round and reactive pupils present EOM: EOMs intact bilaterally Direct Ophthalmoscopy: No no photophobia Neck Neck: Yes no lymphadenopathy, No tender and Yes no JVD Thyroid: Thyroid normal Carotids: no bruits Chest Chest palpation & inspection: no tenderness Resp Effort & Inspection: normal respiratory effort, no audible wheezes, not labored and no stridor Auscultation: no crackles, no rales, no rhonchi and no wheezes Cardio Jugular venous distension: no JVD Rate: regular rate, not bradycardic and not tachycardic Rhythm: regular rhythm Bruits: no carotid bruits Peripheral pulses: Peripheral pulses 2+ throughout GI Inspection: Yes normal to inspection, No abdominal wall ecchymosis and No visible herniation Palpation (GI): Soft to palpation, nontender, no guarding, not rigid and No hepatosplenomegaly present Auscultation: normoactive bowel sounds General: Yes no CVA tenderness Back/Spine/Pelvis Back: no CVA tenderness and No back tenderness Cervical Spine: cervical ROM normal Thoracic/Lumbar Spine: thoracic and lumbar spine normal to inspection, straight leg raise negative bilaterally, No thoraco-lumbar ROM limited and No lumbar spinal tenderness Skin Lesions: no lesions Rashes: no rashes Wounds: no wounds Neuro General: oriented to person, oriented to place, patient oriented x3, CN's II-XI intact bilaterally and No confusion Cranial nerves: Yes Equal, round and reactive pupils present and Yes Normal accommodation reflex present Cognition (Neuro): normal cognition Speech: No Abnormal speech present Gait exam (Neuro): Normal gait present Motor exam (neuro): 5/5 motor strength present throughout Extrem Right upper extremity: full ROM; no cyanosis Left upper extremity: full ROM; no cyanosis Right lower extremity: no edema Left lower extremity: no edema Psych Appearance: grossly normal Mental Status: mental status grossly normal Affect: normal affect Attitude: cooperative Thought process: Normal thought process present Coding Level of Care Code Est Pt Prev Care 18-39y(96860) Diagnoses Annual physical exam Z00. Encounter for vasectomy counseling Z. Class 2 obesity E66.812 Additional Codes EDMUNDO-7 Assessment Billing - EDMUNDO-7 Assessment Tool: EDMUNDO-7 Assessment 40301 ([id number]) PHQ-9 - 31384 - PHQ-9 Billing: Yes ([id number]) Assessment & Plan Assessment & Plan (1) Annual physical exam: Code(s): Z00.00 - Encounter for general adult medical examination without abnormal findings Category: Medical Plan: As per HPI (2) Encounter for vasectomy counseling: Code(s): Z - Encounter for other general counseling and advice on contraception Category: Medical Plan: Patient interested in getting a vasectomy. He is due for his 3rd child this February of 2025. (3) Class 2 obesity: Code(s): E66.812 - Obesity, class 2 Category: Medical Plan: Have noted weight gain since last office visit. Patient does understand his BMI is over 40 and will work on being more physically active and adapting to better eating habits to reduce his weight Orders: Orders Comprehensive [place]. Panel Fast 10/04/24 Z13.1 - Encounter for screening for diabetes mellitus Complete Blood Count no Diff 10/04/24 Z13.1 - Encounter for screening for diabetes mellitus Referrals Urology Referral Z30.09 - Encounter for other general counseling and advice on contraception
[2024-10-04 15:45] VITALS: BP 110/74; PULSE 91; TEMP 36.3; O2SAT 97; BMI 40.2
--- OUTSIDE RECORDS SUMMARY | 2024-10-04 17:48 | XMS_ITS | Clinical Summary ---
Author Organization [employer] [facility] ity Address [address] [place] [address] Care Team Providers Care Prescription Clerk Lenses Name Role Phone Unavailable Primary Care Provider Unavailabl e Social History Tobacco Use Types Packs/Day Years Used Date Smoking Tobacco: Never Assessed Sex and Gender Information Value Date Recorded Sex Assigned at Not on file Legal Sex Male 2:33 PM EST Gender Identity Not on file Sexual Orientation Not on file Plan of Treatment Health Maintenance Due Date Last Done Comments DTaP,Tdap,and Td Vaccines (1 - Tdap) 2010 Hepatitis B Vaccines (1 of 3 - 19+ 3-dose series) 2010 COVID-19 Vaccine (2023-2 5 season) 2024 Influenza Vaccine (Season Ended) 2025 HIB Vaccines Aged Out No longer eligi ble based on patient's age to complete this topic HPV Vaccines Aged Out No longer eligi ble based on patient's age to complete this topic Hepatitis A Vaccines Aged Out No long er eligible based on patient's age to complete this topic IPV Vaccines Aged Out No longer eligi ble based on patient's age to complete this topic MMR Vaccines Aged Out No longer eligi ble based on patient's age to complete this topic Meningococcal ACWY Vaccine Aged Out N o longer eligible based on patient's age to complete this topic Meningococcal B Vaccine Aged Out No l onger eligible based on patient's age to complete this topic Pneumococcal Vaccine: Pediat rics (0 to 5 Years) and At-Risk Patients (6 to 64 Years) Aged Out No longer eligible b ased on patient's age to complete this topic RSV Immunization Patients Un mellisa 20 months Aged Out No longer eligible b ased on patient's age to complete this topic Varicella Vaccines Aged Out No longer eligible based on patient's age to complete this topic
== END 2024-10-04 16:13 | disposition home or self-care (01) ==
LOC: HO.HMCH 15:39
PROVIDERS: PCP Physician Assistant; Visit Provider Physician Assistant
DX: Z00.00 Encounter for general adult medical examination without abnormal findings (principal); E66.812 Obesity, class 2; Z68.41 Body mass index [BMI] 40.0-44.9, adult

== ENCOUNTER → 2024-10-04 15:38 | Outpatient (BNVA) | payer OTHER, SELFPAY | PROVIDERS: PCP Physician Assistant; Visit Provider Physician Assistant | DX: Z00.00 Encounter for general adult medical examination without abnormal findings (principal); I38 Endocarditis, valve unspecified; E66.813 Obesity, class 3; Z68.41 Body mass index [BMI] 40.0-44.9, adult | CPT/HCPCS: 96127; 99395 ==

== ENCOUNTER 2024-12-10 07:45 | Outpatient (AMB) | payer OTHER, SELFPAY ==
--- OUTSIDE RECORDS SUMMARY | 2024-12-10 07:49 | XMS_ITS | Clinical Summary ---
Author Organization [employer] [facility] ity Address [address] [place] [address] Care Team Providers Care Promotion Producer Name Role Phone Unavailable Primary Care Provider [...]
--- NOTE | 2024-12-10 07:54 | A.OFFVIS_ITS ---
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 Moy. He presents to the office today for - vasectomy evaluation Vasectomy evaluation The patient presents for vasectomy consultation.? He is currently single however in a long-term relationship. He has fathered 2 children, with 2 partners The youngest child is 7 years old however has another child on the way and is due end of February 2025 His partner is aware and permissive for a vasectomy Current form of control is previously hormones however significant other is currently and due in February Current employment is shipping manager The vasectomy may be complicated due to a history of no complicating issues. Patient education has been provided via [employer] video, via printed information, risks of failure, recovery time, bruising and potential pain syndrome have been stressed Discussion today focused on the presence of vasectomy and the risks, benefits and alternatives that are available. Vasectomy as intended as a permanent form of control. Printed information and literature was provided to the patient. Overall there is a one in 2500 failure rate. This can occur at any time after vasectomy. Risks were discussed highlighting hematoma, spermatocele, epididymal congestion, development of sperm antibodies, and development of chronic pain estimated between 1-5%. The procedure was reviewed in detail. Anatomical diagrams of the male genitalia were used to explain the location of the vas deferens. The vas deferens will be transected, the proximal end will be cauterized, a metal clip would be applied to separate the 2 vas deferens ends. It was explained the procedure will be done in the office and takes approximately 10-15 minutes. Less common problems that arise with vasectomy include hematoma, bleeding, allergic reaction to anesthetic, epididymal infection, epididymal congestion, scrotal discomfort, spermatic leak, spermatic granuloma and the possibility of antisperm antibodies. He understands these risks and wishes to proceed. Consent was signed at the office today. He also understands that it takes 12 weeks for sperm to fully clear the system. He will need to provide a semen sample at 12 weeks and if this is not clear a 2nd sample at 16 weeks. Medical clearance to stop using protection will only be provided if he satisfies published criteria for sperm clearance. [facility] Surgical History History of appendectomy Family History Father Hypertension Mother Diabetes Hypertension Son Alive and well Daughter Alive and well Social History Housing: House Alcohol intake: never Patient Tobacco Use Status: Never used Tobacco e-Cigarette/Vaping Use: Never Used Second Hand Smoke Exposure: No Substance Use Type: Marijuana service: No Current occupational status: employed Current occupation: [employer] Cognitive needs: No Hearing needs: No Vision needs: Yes (GLASSES) Review of Systems Const All systems reviewed & are unremarkable except as noted in HPI and below Physical Exam Const General: cooperative, healthy appearing, comfortable, no acute distress, well developed, alert and awake Orientation/consciousness: patient oriented x3 Limitations: no limitations HEENT Head: Yes normal to inspection, Yes normocephalic and Yes atraumatic Ears: hearing grossly normal bilaterally Eyes General: appearance normal, both eyes and all related structures Neck Neck: Yes normal visual inspection and Yes trachea midline Chest Chest palpation & inspection: normal inspection of the chest Resp Effort & Inspection: normal respiratory effort and able to speak in complete sentences Cardio Rate: regular rate GI Inspection: Yes normal to inspection General: Yes no CVA tenderness Back/Spine/Pelvis Back: no CVA tenderness Skin General skin exam: no rashes or lesions noted Neuro General: patient oriented x3 Extrem General: Yes normal to inspection Psych Appearance: grossly normal and well kempt Mental Status: mental status grossly normal Speech and movement: Normal speech and movement present and Clear speech present Affect: normal affect Attitude: cooperative Thought process: Normal thought process present Thought content: Normal thought content present Insight: Fair insight present (Psych) Judgement: Fair judgement present (Psych) Assessment & Plan Assessment & Plan (1) Encounter for vasectomy counseling: Code(s): Z30.09 - Encounter for other general counseling and advice on contraception Category: Medical (2) Anxiety about health: Code(s): R45.89 - Other symptoms and signs involving emotional state Category: Medical Plan Vasectomy was discussed in detail; risks and benefits; as noted above. All questions were answered. Consent was obtained. Prescriptions were provided; we discussed importance of bringing medication to office day of procedure. We discussed semen analysis via in office or fellows kit; information provided. Will schedule for in office vasectomy Follow-up per doctor's orders; or sooner with any issues, concerns, and or questions. Medications: New diazepam (Valium) take one tab when arrive for procedure 2 mg PO DAILY 2 tabs 0RF anxiety R45.89 - Other symptoms and signs involving emotional state tramadol 50 mg PO Q8H PRN 9 tabs 0RF pain 3 days N43.3 - Hydrocele, unspecified Patient Instructions: The patient had an opportunity to ask questions regarding the treatment plan. All questions were answered. Physical exam, labs, and imaging were discussed and reviewed in detail. As well as risks, benefits, and discussion of treatment choices. No major barriers to understanding were identified. The patient expressed understanding and agreement with the above treatment plan. The patient was made aware they should contact our office by phone for worsening of their current condition, the appearance of new symptoms, or with any questions or concerns. Compliance is encouraged with any medications and follow up testing that is ordered. It is a privilege to be allowed the opportunity to participate in? your urological care.? Again, if you have any questions or concerns If you have any questions or concerns please do not hesitate to contact me. The office is [phone]. This note is constructed using voice recognition software. While every effort has been made to ensure accuracy benefits coordinator errors may have been included. Yours sincerely, ELZA Alonso Coding Level of Care Code New Pt Level 4 (80381) Diagnoses Encounter for vasectomy counseling Z30. Anxiety about health R45.89
== END 2024-12-10 08:39 | disposition home or self-care (01) ==
LOC: HO.HUSH 07:46
PROVIDERS: PCP Physician Assistant; Visit Provider Nurse Practitioner Family
DX: Z30.09 Encounter for other general counseling and advice on contraception (principal); R45.89 Other symptoms and signs involving emotional state
CPT/HCPCS: 99204

== ENCOUNTER → 2024-12-10 07:45 | Outpatient (BNVA) | payer OTHER, SELFPAY | PROVIDERS: PCP Physician Assistant; Visit Provider Nurse Practitioner Family | DX: Z30.09 Encounter for other general counseling and advice on contraception (principal); R45.89 Other symptoms and signs involving emotional state | CPT/HCPCS: 99202 ==

== ENCOUNTER 2025-06-14 14:30 | Outpatient (AMB) | payer OTHER, SELFPAY ==
--- NOTE | 2025-06-14 14:52 | A.OFFVIS_ITS ---
Intake Visit Reasons: vasectomy Intake Note: Reason for Visit: Vasectomy Urology Meds: None Vasectomy Consent Signed Allergies No Known Allergies (No Known Allergies*) Allergy (Verified 12/10/24 08:37) HPI Comments Details: Michael is a very pleasant 34-year-old male patient of Dr. Moy. He presents to the office today for - vasectomy evaluation Here for vasectomy procedure Vasectomy evaluation The patient presents for vasectomy consultation.? He is currently single however in a long-term relationship. He has fathered 2 children, with 2 partners The youngest child is 7 years old however has another child on the way and is due end of February 2025 His partner is aware and permissive for a vasectomy Current form of control is previously hormones however significant other is currently and due in February Current employment is shipping agent [employer] Surgical History History of appendectomy Family History Father Hypertension Mother Diabetes Hypertension Son Alive and well Daughter Alive and well Social History Housing: House Alcohol intake: never Patient Tobacco Use Status: Never used Tobacco e-Cigarette/Vaping Use: Never Used Second Hand Smoke Exposure: No Substance Use Type: Marijuana service: No Current occupational status: employed Current occupation: Shipping and [employer] Cognitive needs: No Hearing needs: No Vision needs: Yes (GLASSES) Review of Systems Const Denies chills and Denies fever(s) Card Reports no additional complaints and Denies syncope Resp Denies cough GI Denies abdominal pain and Denies heartburn Reports as per HPI and Denies change in libido Neuro Denies syncope Psych Denies change in libido Endo Denies change in libido Physical Exam Const General: cooperative, healthy appearing, comfortable and no acute distress Orientation/consciousness: patient oriented x3 HEENT Face and sinus: Yes normal facial exam Mouth: moist mucous membranes Neck Neck: Yes normal visual inspection, Yes full ROM and Yes trachea midline Chest Chest palpation & inspection: normal inspection of the chest Resp Effort & Inspection: normal respiratory effort, able to speak in complete sentences and no respiratory distress GI Inspection: Yes normal to inspection Back/Spine/Pelvis Cervical Spine: normal cervical lordosis Thoracic/Lumbar Spine: thoracic and lumbar spine normal to inspection Skin General skin exam: no rashes or lesions noted Neuro General: patient oriented x3, gait normal, tone normal and moves all extremities Extrem General: Yes normal to inspection and Yes capillary refill normal Office Procedures Vasectomy Details: Preoperative diagnosis: Anxiety regarding Postoperative diagnosis: Anxiety regarding unplanned Procedure: Bilateral vasectomy Informed consent had been completed. Preoperative and postoperative instructions were provided to the patient. The patient has transportation home identified at the completion of the procedure. Anti-anxiolytic prescription medication had been taken after consent verification and all questions answered. A limited amount of pain medication was also provided. The penis was elevated using a rubber band that was attached to the patient's shirt. Both vasa were palpated through the skin using a 3 finger technique and the penoscrotal junction was prepped with Betadine. After Betadine application the left vas was elevated using a 3 finger grasping technique. 1% lidocaine was used to create a subdermal bubble. Further anesthetic was then advanced using the 25-gauge needle along the vasa in a proximal fashion. Approximately 2 minutes were allowed to for local an esthetic uptake. Using the sharp spreading instrument the scrotal skin was spread longitudinally in line with the vasa until the subdermal layer had been divided. The vasa was then elevated from the scrotum using a ring clamp. Care was taken to elevate the superior portion of the vasa by rotating the ring clamp in a caudad direction. The battery powered cautery was used to divide the vasal sheath in a longitudinal direction on the exposed vasa and to strip the vasal sheath from the vasa. The sharp spreading instrument was used to further expose the vas within the vasal sheath. A 2nd narrower ring clamp was placed on the exposed vas and used to lift the vas from the vasal sheath. The cautery was used to divide vasal attachments and allow full exposure of a small loop of vasa. The sharp spreading instrument was then used to create a tunnel under the vasa and spread to allow the blood vessels of the vasa to retract from the vasa. A mosquito clamp was placed on the proximal portion of the vas. The battery- powered cautery was used to make a partial division in the proximal vas and then inserted in order to cauterize the proximal end of the vas. This was then cut and allowed to retract into the vasal sheath. The mosquito was then used to twist the vasa 180 degrees creating a fascial interposition as the proximal portion of the vas retracted in the vasal sheath. Using a 4-0 chromic suture the fascial interposition was sutured closed. The distal portion of the vas was then cut in order to obtain a segment of vasa. An open distal vas is preferred for minimizing postprocedure pain. The vasa were allowed to retract back into the scrotum. A small snap was then used to approximate the skin edges and allow hemostasis without placement of a suture. A similar procedure was repeated on the right side. He tolerated the procedure well. Triple antibiotic was applied. A gauze was applied. An ice pack was applied to assist with minimizing swelling. Postoperative instructions were confirmed. He understands the need to continue to use control methods. A semen sample should be brought for inspection under the microscope in 10-12 weeks. CPT 42535 Informed consent given: Yes Time out checklist: patient, procedure, site marked/identified, positioning of patient, supplies available, allergies confirmed and team agrees on procedure Preoperative sedation: Yes Anesthetic used: other Specimens: vas segments not sent to pathology [id number] - Vasectomy Office Meds lidocaine (PF) 10 mg/mL (1 %) injection solution Performing Provider: Juan Covarrubias MD [facility] [place] [facility] Documented (not given) by: Juan Covarrubias MD on 06/23/25 22:01 Dose Route Admin Location Dispensed Lot Number Expiration Date [employer] 2 mL Infiltration mL Total Dispensed Waste n/a n/a Assessment & Plan Assessment & Plan (1) Anxiety about health: Code(s): R45.89 - Other symptoms and signs involving emotional state Category: Medical Plan Three-month follow-up semen analysis Orders: Orders AMB Vasectomy 06/14/25 R45.89 - Other symptoms and signs involving emotional state Medications: New lidocaine (PF) 2 mL Infiltration ONCE 2 mL 0RF R45.89 - Other symptoms and signs involving emotional state Patient Instructions: This note is constructed using voice recognition software. While every effort has been made to ensure accuracy brand ambassador promotional model errors may have been included. Imaging studies, laboratory and physical exam results were discussed and reviewed in detail. No major barriers to patient understanding were identified. An opportunity to ask questions regarding the treatment plan was provided. All questions were answered. The patient expressed understanding and agreement with the above treatment plan. The patient is aware they should contact our office by phone for worsening of their current condition or the appearance of new urologic symptoms. Compliance is encouraged with any medications and followup testing that is ordered. It is a privilege to participate in the urologic care of your patient. If you have any questions or concerns regarding treatment for the above conditions, or other urologic issues, please do not hesitate to contact me. The office telephone contact is [phone]. Sincerely, Dr Juan Covarrubias MD, [facility] - Urology Compassionate Specialist Care for the Genitourinary System Coding Level of Care Code Procedure Only Diagnoses Anxiety about health R45.89 CPT Codes Office Procedure - CPT: 35654 - Vasectomy ([id number])
--- OUTSIDE RECORDS SUMMARY | 2025-06-14 15:57 | XMS_ITS | Clinical Summary ---
Author Organization [employer] [facility] ity Address [address] [place] [address] Care Team Providers Care Event Producer Name Role Phone Unavailable Primary Care [...] of 3 - 19+ 3-dose series) 2010 HPV Vaccines (1 - 3-dose SCD M series) 2018 Depression Screening 06/27/2024 COVID-19 Vaccine (1 - 2024-2 6 season) 2025 Influenza Vaccine (#1) 2025 RSV Immunization Adult Patie nts (1 - 1-dose 75+ series) 2066 HIB Vaccines Aged Out No longer eligi [...] 5 Years) and At-Risk Patients (6 to 49 Years) Aged Out No longer eligible b ased on patient's age to complete this topic RSV Immunization Patients Un mellisa 20 months Aged Out No longer eligible b ased on patient's age to complete this topic Varicella Vaccines Aged Out No longer eligible based on patient's age to complete this topic
== END 2025-06-14 15:38 | disposition home or self-care (01) ==
LOC: HO.HUSH 14:31
PROVIDERS: PCP Physician Assistant; Visit Provider Urology
DX: Z30.2 Encounter for sterilization (principal); R45.89 Other symptoms and signs involving emotional state
CPT/HCPCS: 55250

== ENCOUNTER → 2025-06-14 14:30 | Outpatient (BNVA) | payer OTHER, SELFPAY | PROVIDERS: PCP Physician Assistant; Visit Provider Urology | DX: Z30.2 Encounter for sterilization (principal); R45.89 Other symptoms and signs involving emotional state | CPT/HCPCS: 55250 ==